=== PATIENT | female | born 1995 | race Caucasian/White ===

== ENCOUNTER 2024-03-10 17:03 | Observation (INO) ==
[2024-03-10 17:55] LABS: Basophils # (auto) 0.07 K/uL (0.00-0.20); Eosinophils # (auto) 0.09 K/uL (0.00-0.50); Eosinophils % (auto) 1.2 %; Hematocrit (blood only) 28.7 % (37.0-47.0); Hemoglobin 8.7 g/dl (12.0-16.0); Immature Granulocytes # (auto) 0.02 K/uL (0.01-0.20); Immature Granulocytes % (auto) 0.3 %; Lymphocytes # (auto) 1.62 K/uL (1.20-3.40); Mean Corpuscular Hemoglobin 21.3 pg (25.0-34.0); Mean Corpuscular Hgb Conc 30.3 g/dL (32.0-36.0); Mean Corpuscular Volume 70.3 fL (80.0-100.0); Monocytes # (auto) 0.47 K/uL (0.11-0.59); Monocytes % (auto) 6.4 %; Neutrophils # (auto) 5.08 K/uL (1.40-6.50); Neutrophils % (auto) 69.1 %; Platelet Count 367 K/uL (130-400); RDW Coefficient of Variation 19.5 % (11.5-14.5); RDW Standard Deviation 48.8 fL (36.4-46.3); Red Blood Count 4.08 M/uL (4.20-5.40); White Blood Count 7.35 K/ul (4.8-10.8)
[2024-03-10 18:07] LABS: Pregnancy Test, Serum Negative (Negative)
[2024-03-10 18:09] LABS: Albumin Globulin Ratio 1.7 (0.9-2); Albumin Level 4.5 gm/dl (3.4-5.0); Bilirubin,Total 0.4 mg/dl (0.2-1.0); Calcium 9.4 mg/dl (8.6-10.3); Creatinine Clr Calc Pharmacy 107.6 ml/min; Globulin 2.7 gm/dl (2.5-4.0); Potassium 3.2 mmol/L (3.5-5.1); Total Protein 7.2 gm/dl (6.0-8.3)
--- NOTE | 2024-03-10 19:11 | Emergency Department Note ---
Impression & Plan Abdominal pain, Anemia ED Provider Note NAME: DENNIS TURNER AGE: 29 SEX: F : 1995 ARRIVES VIA: Walk-In INFORMANT: Patient, ED PROVIDER(S): Yeyo Montes De Oca DO CHIEF COMPLAINT: Abdominal pain HPI: The patient is a 29-year-old female who presented to the emergency department for an evaluation of lower abdominal pain. She states the pain began over the last 48 hours. She also noticed that her menses started. She was having sharp crampy intermittent pain initially. She now has lower abdominal pressure. She was sent for laboratory studies by her primary care physician. She was found to have an elevated white blood cell count. For this reason she was sent for a CAT scan of her abdomen and pelvis which did reveal appendicitis. She was sent to the emergency department for an evaluation. ROS: See above HPI for pertinent positives & negatives. A total of 10 systems reviewed and were otherwise negative. PAST MEDICAL HISTORY: See Below PAST SURGICAL HISTORY: See Below FAMILY HISTORY: See Below SOCIAL HISTORY: See Below HOME MEDICATIONS: See Below ALLERGIES: See Below VITALS: See Below PHYSICAL EXAMINATION: GENERAL: Patient is awake alert in no acute distress patient is resting comfortably and showing no signs of anxiety EYES: The conjunctivae are clear. The pupils are round and reactive. EARS, NOSE, MOUTH AND THROAT: The nose is without any evidence of any deformity. NECK: The neck is nontender and supple. RESPIRATORY: Normal respiratory effort is noted there is no evidence of wheezing rhonchi or rales CARDIOVASCULAR: Regular rate and rhythm noted there no murmurs rubs or gallops normal S1 normal S2. GASTROINTESTINAL: The abdomen is soft. There is lower abdominal tenderness to palpation. There is no guarding rigidity. BACK: No midline tenderness or or step-off noted range of motion in flexion extension as well as rotation no signs of muscle spasm noted MUSCULOSKELETAL/EXTREMITIES: There is no evidence of gross deformity full range of motion is noted in the hips and shoulders. SKIN: There is no obvious evidence of any rash. NEUROLOGIC: Patient is awake alert and oriented x3 MEDICAL DECISION MAKING: The patient is a 29-year-old female who presented to the emergency department for an evaluation of abdominal pain. The patient had severe abdominal pain yesterday which seems to have calm down. The patient did have an initial elevation in her white blood cell count according to her once it was checked by her primary care physician. The patient had an outpatient CAT scan which showed a dilated appendix so she was sent to the emergency department for surgical evaluation. The patient's white count was normal in the emergency department. The patient's physical exam was not consistent with an acute surgical abdomen but she did have lower abdominal tenderness. I discussed her condition with the on-call general surgical group. At this time they feel the patient would be best to observe to determine if her exam vital signs or laboratory studies change. The patient was agreeable to plan. Triage Nursing notes reviewed. Prior medical records reviewed Vital Signs: reviewed and remarkable for no significant abnormalities Differential diagnosis: Etiologies such as appendicitis, diverticulitis, obstruction, inflammatory bowel disease, renal colic, PUD, biliary pathology, pancreatitis, mesenteric ischemia, aortic pathology, infections, genitourinary, UTI, perforated viscus, as well as others were entertained. ER treatment provided: See below Diagnostics interpreted by me: ECG: none Cardiac Monitoring: An order was placed for continuous cardiac monitoring. The monitor shows a rate of 72 bpm with sinus rhythm. Laboratory studies: As stated above and show below. Imaging studies: See below. Radiographic imaging was reviewed by myself Consultation(s): I discussed this case with Dr. Arenas who is on-call for general surgery. Past Med/Surg History Problem List (Updated 03/10/24 @ 23:15 by Yeyo Montes De Oca DO) Anemia (Acute) Abdominal pain (Acute) Non-cardiac chest pain (Acute) Vomiting (Acute) Social History Smoking Status: Never smoker Second Hand Exposure: No; Do You Dip or Chew Tobacco: No; Hx Alcohol Use: No Hx Substance Use: No Preferred Language: Nigerien Communication Ability: Effective Printing Specialist Required: No Beliefs That Will Affect Care: None Current Living Situation: Family Feels Safe at Home: Yes Assistive Devices: None Allergies Allergies Allergy/AdvReac Type Severity Reaction Status Date / Time No Known Allergies Allergy Unverified 04/16/15 21:02 Home Meds Home Medications Medication Instructions Recorded Confirmed Acetaminophen (Tylenol) 500 mg PO BID #0 tabs 04/16/15 Control Pills 1 tab PO DAILY #0 tabs 04/16/15 Ibuprofen 400 mg PO DIRECTED ##0 04/16/15 Results & Data (ED) Vital Signs Vital Signs - 24 hr 03/10/24 17:12 03/10/24 18:45 Temperature 36.2 C L Temperature Source Temporal Artery Scan Pulse Rate 93 H Pulse Rate [Apical] 82 Respiratory Rate 14 18 Blood Pressure 121/75 Blood Pressure [Right Arm] 123/86 Blood Pressure Mean 90 Blood Pressure Mean [Right Arm] 98 Pulse Oximetry 99 100 Oxygen Delivery Method Room Air Room Air Sepsis New/Unexplained Change in Mental Status No Sepsis Action Taken by Nursing No Action Required Home Medications Current Medication List: was personally reviewed by me Laboratory Data Attestation: I reviewed the patient's lab results. 03/10/24 17:23 03/10/24 17:23 Lab Results 03/10/24 03/10/24 Range/Units 17:23 Unknown WBC 7.35 (4.8-10.8) K/ul RBC 4.08 L (4.20-5.40) M/uL Hgb 8.7 L (12.0-16.0) g/dl Hct 28.7 L (37.0-47.0) % MCV 70.3 L (80.0-100.0) fL MCH 21.3 L (25.0-34.0) pg MCHC 30.3 L (32.0-36.0) g/dL RDW Std Deviation 48.8 H (36.4-46.3) fL RDW Coeff of Odette 19.5 H (11.5-14.5) % Plt Count 367 (130-400) K/uL MPV 10.0 (9.4-12.4) fL Immature Gran % (Auto) 0.3 % Neut % (Auto) 69.1 % Lymph % (Auto) 22.0 % [place] % (Auto) 6.4 % Eos % (Auto) 1.2 % Baso % (Auto) 1.0 % Neut # (Auto) 5.08 (1.40-6.50) K/uL Lymph # (Auto) 1.62 (1.20-3.40) K/uL Beadle # (Auto) 0.47 (0.11-0.59) K/uL Eos # (Auto) 0.09 (0.00-0.50) K/uL Baso # (Auto) 0.07 (0.00-0.20) K/uL Immature Gran # (Auto) 0.02 (0.01-0.20) K/uL Sodium 139 (136-145) mmol/L Potassium 3.2 L (3.5-5.1) mmol/L Chloride 103 (98-107) mmol/L Carbon Dioxide 27 (21-32) mmol/L Anion Gap 9 (3-11) BUN 9 (6-23) mg/dl Creatinine 0.75 (0.6-1.2) mg/dl Est Cr Clr Drug Dosing 107.6 ml/min eGFR 110.45 BUN/Creatinine Ratio 12.0 (10-20) Glucose 104 H (70-99(Fasting)) mg/dl Calcium 9.4 (8.6-10.3) mg/dl Total Bilirubin 0.4 (0.2-1.0) mg/dl AST 15 (13-39) U/L ALT 11 (7-52) U/L Alkaline Phosphatase 37 (34-104) U/L Total Protein 7.2 (6.0-8.3) gm/dl Albumin 4.5 (3.4-5.0) gm/dl Globulin 2.7 (2.5-4.0) gm/dl Albumin/Globulin Ratio 1.7 (0.9-2) Lipase 13 (11-82) U/L HCG, Qual Negative (Negative) Urine Color Yellow Urine Appearance Clear (Clear) Urine pH 5.5 (4.5-7.5) Ur Specific [place] 1.045 H (1.000-1.030) Urine Protein Negative (Negative) Urine Glucose (UA) Negative (Negative) Urine Ketones Negative (Negative) Urine Blood 2+ H (Negative) Urine Nitrite Negative (Negative) Urine Bilirubin Negative (Negative) Urine Urobilinogen Negative (Negative) Ur Leukocyte Esterase Negative (Negative) Urine WBC (Auto) 0-5 (0-5) /hpf Urine RBC (Auto) >20 H (0-2) /hpf U Hyaline Cast (Auto) 0-2 (0-2) /lpf U Epithel Cells (Auto) 0-2 (0-2) /hpf Urine Bacteria (Auto) None Seen (None Seen) Imaging Data Attestation: I personally reviewed and interpreted this imaging study as follows: My Impression: I did review the patient's CAT scan that was done earlier in the day. My interpretation is no free air or signs of bowel obstruction, final report was in the EMR. Discharge Plan Visit Data Chief Complaint: Abdominal Pain Stated Complaint: APPENDICITIS ED Provider: Yeyo Montes De Oca Discharge Problem: Abdominal pain, Anemia Patient Disposition: Admitted As Inpatient Discharge Problem: Abdominal pain Qualifiers: Abdominal location: lower abdomen, unspecified Qualified Code(s): R10.30 - Lower abdominal pain, unspecified Anemia Qualifiers: Anemia type: unspecified type Qualified Code(s): D64.9 - Anemia, unspecified
[2024-03-10 19:24] LABS: Appearance Urine Clear (Clear); Bacteria Urine Automated None Seen (None Seen); Bilirubin Urine Negative (Negative); Blood Urine 2+ (Negative); Cast Urine Automated 0-2 /lpf (0-2); Color Urine Yellow; Epithelial Cell Urine Auto 0-2 /hpf (0-2); Glucose Urine UA Negative (Negative); Ketones Urine Negative (Negative); Leukocyte Esterase Urine Negative (Negative); Nitrite Urine Negative (Negative); Protein Urine Negative (Negative); RBC Urine Automated >20 /hpf (0-2); Specific Gravity Urine 1.045 (1.000-1.030); Urobilinogen Urine Negative (Negative); WBC Urine Automated 0-5 /hpf (0-5); pH Urine 5.5 (4.5-7.5)
[2024-03-10] MEDS ORDERED: ONDANSETRON INJ 2 MG/ML 2 ML VIAL IV PRN (19:26)
[2024-03-10] MEDS ORDERED: MoRPHine SULFATE 2 MG/ML CARP IV PRN (19:26)
[2024-03-10] MEDS: PIPERACILLIN/TAZOBACTAM 4.5 GM/100 ML BAG IV ONE (19:32)
[2024-03-10] MEDS: SODIUM CHLORIDE 0.9% 500 ML IV SCH (20:00)
[2024-03-11] MEDS: PIPERACILLIN/TAZOBACTAM 4.5 GM/100 ML BAG IV SCH (01:54)
[2024-03-11] MEDS: ACETAMINOPHEN 325 MG TAB PO PRN (06:35)
[2024-03-11 07:22] VITALS: RESP 18; TEMP 97.7; O2SAT 98
--- NOTE | 2024-03-11 09:40 | History & Physical Report ---
Date of Service March 11, 2024 Assessment & Plan (1) Abdominal pain: Plan: abdominal pain resolved not appendicitis begin diet discharge after breakfast will return if pain returns Admission and Anticipated Discharge Date Admission Date: March 10, 2024 History of Present Illness Primary Care Provider: Connie Garza DO This is a 29YO female admitted from the ED lower abdominal pain and a CT scan showing a dilated appendix without inflammatory changes/normal WBC. She denied fever or chills. She had some nausea but resolved. The pain began 2-3 days ago. She also noticed that her menses started. She was having sharp crampy intermittent pain initially. Her pain has resolved overnight and is hungry. Allergies Allergy/AdvReac Type Severity Reaction Status Date / Time No Known Allergies Allergy Unverified 03/10/24 19:54 Home Medications Medication Instructions Recorded Confirmed Type ferrous sulfate 27 mg iron tablet 27 mg PO DAILY 03/10/24 03/10/24 History multivitamin 1 tab PO DAILY 03/10/24 03/10/24 History Past Med/Surg History Problem List (Updated 03/10/24 @ 23:15 by Yeyo Montes De Oca DO) Anemia (Acute) Abdominal pain (Acute) Non-cardiac chest pain (Acute) Vomiting (Acute) Social History Smoking Status: Never smoker Second Hand Exposure: No; Do You Dip or Chew Tobacco: No; Tobacco Cessation Education Requested by Patient: No Hx Alcohol Use: No Hx Substance Use: No Preferred Language: Libyan Communication Ability: Effective Window And Siding Craftsman Required: No Beliefs That Will Affect Care: None Current Living Situation: Family Other Information That Helps Us Care for You: No Feels Safe at Home: Yes Safety Concerns: Feels Safe At This Time Assistive Devices: None Review of Systems Constitutional: no fever, no chills and no anorexia Eyes: no problem reported Ear, Nose, Mouth, Throat: no problem reported Respiratory: no cough and no dyspnea Cardiovascular: no chest pain Gastrointestinal: no abdominal pain, no nausea, no vomiting and no change in bowel habits Genitourinary: no dysuria Musculoskeletal: no back pain Integumentary: no problem reported Neurologic: no localized weakness and no generalized weakness Psychiatric: no behavioral changes Endocrine: no fatigue Hematologic / Lymphatic: no easy bleeding and no easy bruising Physical Exam Constitutional: WD/WN, vitals as above Eyes: PERRL, conjunctivae normal, anicteric sclerae ENMT: external ear and nose normal, oropharynx normal Neck: trachea midline Respiratory: normal respiratory effort, lungs clear to auscultation Cardiovascular: RRR, no murmur, no edema Gastrointestinal (Abdomen): Inspection/Auscultation: abdomen normal to inspection and normal bowel sounds; abdomen not distended Percussion/Palpation: abdomen soft; abdomen nontender and no guarding Musculoskeletal: Head/Neck/Chest: normocephalic and head atraumatic Skin: no rashes, warm and dry Psychiatric: Orientation: alert and oriented x 3 Results & Data Results & Data Vital Signs (Past 12 Hours) Vital Signs Temp Pulse Pulse Resp BP Pulse Ox O2 Del Method 03/11/24 07:21 36.5 C 82 18 99/66 L 98 Room Air 03/11/24 05:56 36.3 C L 88 17 95/62 L 97 Room Air 03/10/24 22:31 36.3 C L 72 18 118/75 98 Room Air 03/10/24 22:06 36.3 C L 72 16 118/75 99 Room Air Code Status & VTE Plan VTE Prophylaxis Plan VTE Prophylaxis will be ordered: Yes (1) Abdominal pain Abdominal location: lower abdomen, unspecified Qualified Code(s): R10.30 - Lower abdominal pain, unspecified
--- NOTE | 2024-03-11 09:46 | Discharge Summary ---
Date of Service March 11, 2024 Admission HPI Per Admitting Provider This is a 29YO female admitted from the ED lower abdominal pain and a CT scan showing a dilated appendix without inflammatory changes/normal WBC. She denied fever or chills. She had some nausea but resolved. The pain began 2-3 days ago. She also noticed that her menses started. She was having sharp crampy intermittent pain initially. Her pain has resolved overnight and is hungry. Admission Exam Per Admitting Provider WD/WN, vitals as above Eyes: PERRL, conjunctivae normal, anicteric sclerae ENMT: external ear and nose normal, oropharynx normal Neck: trachea midline Respiratory: normal respiratory effort, lungs clear to auscultation Cardiovascular: RRR, no murmur, no edema Gastrointestinal (Abdomen): Inspection/Auscultation: abdomen normal to inspection and normal bowel sounds; abdomen not distended Percussion/Palpation: abdomen soft; abdomen nontender and no guarding Musculoskeletal: Head/Neck/Chest: normocephalic and head atraumatic Skin: no rashes, warm and dry Psychiatric: Orientation: alert and oriented x 3 Principal Diagnosis abdominal pain Discharge Exam Gastrointestinal (Abdomen) Inspection/Auscultation: abdomen normal to inspection and normal bowel sounds; abdomen not distended Percussion/Palpation: abdomen soft; abdomen nontender and no guarding Discharge Data Allergies Allergy/AdvReac Type Severity Reaction Status Date / Time No Known Allergies Allergy Unverified 03/10/24 19:54 Consultations 03/10/24 19:09 Consult General Surgery Stat Hospital Course (1) Abdominal pain: The patient admitted with abdominal pain and dilated appendix, no appendicitis. She was admitted and give IV abx and IVF. She tolerated clears. the pain resolved and has no other constitutional symptoms. She was discharged HD #1. Total Time Total Time Spent Total Time Spent (In Minutes): 15 Discharge Plan Discharge Items Patient Disposition: Home - Self-Care Reason For Visit: ABDOMINAL PAIN Discharge Diagnosis: abdominal pain Activity: Per Instructions section Lifting: None Bathing: No limitations Sexual Activity: When tolerated Driving/Machine Use: No limitations Weightbearing: Full weightbearing Non-emergency contact: Surgeon Call non-emergency contact if: your pain is concerning for you and your temperature is above 101.5 Follow-up/Referrals: Connie Garza DO [Primary Care Provider] - Diet: Regular Addtl Attending Provider Instructions: activity as tolerated return to ED if pain returns or fevers/chill Pending Studies at Discharge: No Stand-Alone Forms: [facility], Smoking Cessation Medications and DC Order Prescriptions: Continued multivitamin Tablet 1 tab PO DAILY ferrous sulfate 27 mg iron Tablet 27 mg PO DAILY Discharge Orders: Discharge Order (Routine); Ordered 03/11/24 Ordered By: Kelechi Arenas Admission Data Admit Date/Time: 03/10/24 19:27 Attending Provider: Kelechi Arenas Admit Provider: Kelechi Arenas Primary Care Provider: Connie Garza Other Providers: Kelechi Arenas
[2024-03-11 09:55] VITALS: BP 123/86; PULSE 72
== END 2024-03-11 11:50 | disposition home or self-care (01) ==
LOC: 3N 17:03 → ED 17:03 → 3N 21:12